=== PATIENT | female | born 1925 | race Caucasian/White ===

== ENCOUNTER → 2016-06-09 | Outpatient (CLI) | payer MEDICARE, BC ==
--- NOTE | ~2016-06-09 | CR212 ---
[facility] A Service of [facility] RADIOLOGY TEXT RESULTS PATIENT: KITTY MUNOZ LOCATION: [facility] : [birth year] UNIT #: [id number] AGE: [address]: Rasheed Ordaz Jr, MD SEX: F ORDER DR: [id number] [facility] [address] [place], [place] [address] [id number] O MR#: [id number] Acc #: [id number] NAME: KITTY MUNOZ : 1925 SEX: F STUDY DATE/TIME: 06/09/2016 12:17 UNIT: [facility] ROOM: STUDY DESCRIPTION: CR Ribs Unilateral 2 View Lt Attending Physician: Rasheed Ordaz Jr., M.D. Referring Physician: Rasheed Ordaz Jr., M.D. Ordering Physician: Rasheed Ordaz Jr., M.D. Primary Care Physician: Rasheed Ordaz Jr., M.D. MEDICAL IMAGING REPORT This report is preliminary unless electronic signature is present EXAM Frontal chest and left rib series 06/09/2016 INDICATIONS 89-year-old female with chest wall contusion on the left. Initial encounter chest wall pain, left rib pain for 3 weeks after falling on concrete. TECHNIQUE Frontal chest and 4 views of the left ribs were performed. COMPARISON We have no comparisons. FINDINGS Cardiac silhouette is within normal limits. The vascularity is normal. There is no effusion, dense consolidation or pneumothorax. No distinct rib fracture identified. Costochondral calcifications are noted bilaterally. There is levoscoliosis of the lumbar spine. IMPRESSION 1. Pulmonary hyperinflation. Lungs otherwise clear. No pneumothorax. Mild scarring in the lung apices. 2. No distinct rib fracture. Dictated by... John Kruse M.D. THIS IS AN ELECTRONICALLY VERIFIED REPORT John Kruse M.D. at 06/10/2016 7:35 AM JLY/to [facility] A Service of [facility] RADIOLOGY TEXT RESULTS PATIENT: KITTY MUNOZ LOCATION: [facility] #: [id number] : [birth year] UNIT #: [id number] AGE: [address]: Rasheed Ordaz Jr, MD SEX: F ORDER DR: TD: 06/09/2016 19:53 JOB #: [id number] MEDICAL IMAGING REPORT Page 1 of 1 COPY
== END | disposition home or self-care (01) ==
LOC: CRAD 11:57
DX: S20.212A Contusion of left front wall of thorax, initial encounter (principal)
CPT/HCPCS: 71100